=== PATIENT | male | born 1960 | race Caucasian/White ===

== ENCOUNTER → 2021-06-11 | Outpatient (CLI) | payer MEDICARE ==
--- NOTE | 2021-06-11 12:54 | RAD ---
PQRS Compliance Statement: One or more of the following individualized dose reduction techniques were utilized for this examinat ion: 1. Automated exposure control 2. Adjustment of the mA and/or kV according to patient size 3. Use of iterative reconstruction technique Exam performed: CT abdomen and pelvis with contrast HISTORY: Abdominal wall mass. DATE OF SERVICE: 06/11/2021. COMPARISON: CT abdomen and pelvis from 05/24/2011. TECHNIQUE: Contiguous helical acquisitions are obtained through the abdomen and pelvis without IV con trast. Oral contrast was administered. Sagittal and coronal reformatted images are obtained and revie wed. FINDINGS: There is a large low attenuating soft tissue density mass measuring 1.9 x 1.2 x 1.7 cm in maximum cras niocaudal, AP and transverse dimension in the anterior abdominal wall causing mass effect on the ante rior abdominal wall. There is no evidence of abdominal wall hernia. Linear right basilar opacities likely atelectasis. The left lung base is normal. Unopacified liver, spleen, both adrenal glands and bilateral kidneys are normal. Cholecystectomy. Dif fuse steatosis of the pancreas. Small bowel loops are nondilated and unremarkable. There is scattered stool in the colon. Urinary bladder is partially decompressed. Prostate gland, seminal vesicles and rectum appear normal. Interrogation of bone windows demonstrates no bony abnormalities. IMPRESSION: Large low attenuating soft tissue tissue density 1.9 x 1.2 x 1.7 cm abnormality in the anterior abdom inal wall perhaps represents a seroma. Abdominal wall ultrasound may be obtained to confirm the cysti c nature of the abnormality and possible ultrasound-guided aspiration. Electronically signed by: Aleida Lott MD (06/11/2021 12:52 PM) [id number]
== END ==
LOC: CT 07:57
PROVIDERS: ATTEND Surgery
DX: K91.872 Postprocedural seroma of a digestive system organ or structure following a digestive system procedure (principal); R19.09 Other intra-abdominal and pelvic swelling, mass and lump; Z90.49 Acquired absence of other specified parts of digestive tract
CPT/HCPCS: 74176